=== PATIENT | male | born 1965 | race Asian ===

== ENCOUNTER 2025-05-01 06:03 | Day surgery (SDC) | payer OTHER ==
[2025-04-24 11:33] VITALS: BMI 23.8
[2025-05-01] MEDS ORDERED: PROPOFOL 20 ML ONE (07:38)
[2025-05-01] MEDS ORDERED: Lidocaine 1% PF 5 ML VIAL ONE (08:44)
[2025-05-01] MEDS ORDERED: PHENYLEPHRINE-NS 100 MCG/ML 10 ML SYRINGE ONE (08:44)
== END 2025-05-01 10:30 | disposition home or self-care (01) ==
LOC: CSHSDC 06:03
PROVIDERS: ATTEND Surgery
PROC: 0DBP8ZZ Excision of Rectum, Via Natural or Artificial Opening Endoscopic (ICD-10-PCS; principal; 2025-05-01)
PROC: 0DBN8ZX Excision of Sigmoid Colon, Via Natural or Artificial Opening Endoscopic, Diagnostic (ICD-10-PCS; principal; 2025-05-01)
DX: D12.8 Benign neoplasm of rectum (principal); K63.5 Polyp of colon; K57.30 Diverticulosis of large intestine without perforation or abscess without bleeding; K21.9 Gastro-esophageal reflux disease without esophagitis; E11.9 Type 2 diabetes mellitus without complications; Z79.84 Long term (current) use of oral hypoglycemic drugs; Z79.899 Other long term (current) drug therapy
CPT/HCPCS: 88305; J2704